=== PATIENT | female | born 1980 | race African-American/Black ===

== ENCOUNTER 2018-11-06 13:42 | Emergency (ER) | payer BC ==
[2018-11-06 14:49] LABS: Absolute Lymphocytes (CBC) 1.2 K/uL (0.7-4.9); Absolute Monocytes 0.4 K/uL (0.1-1.3); Absolute Neutrophil 10.5 K/uL (1.8-8.0); Basophils % 0.2 % (0-1.3); Eosinophils % 0.9 % (0-4.4); Hematocrit 38.8 % (36.0-45.0); Lymphocytes % 9.6 % (15.3-44.8); MPV 8.5 fL (7.6-11.3); Monocytes % 3.3 % (3.3-12.3); RBC Red Blood Cell Count 4.55 M/uL (3.86-4.86)
[2018-11-06] MEDS ORDERED: NA CHLORIDE 0.9% 1,000 ML ONE (14:52)
[2018-11-06 14:59] LABS: Protime INR 1.08
[2018-11-06 15:15] LABS: ALT/SGPT 17 U/L (12-78); AST/SGOT 16 U/L (15-37); Albumin 4.3 g/dL (3.4-5.0); Alkaline Phosphatase 83 U/L (45-117); BUN Blood Urea Nitrogen 17 mg/dL (7-18); Bicarbonate 23 mmol/L (21-32); Bilirubin Direct 0.1 mg/dL (0-0.2); Bilirubin Total 0.3 mg/dL (0.2-1.0); Glucose Level 56 mg/dL (74-106); Potassium 3.6 mmol/L (3.5-5.1); Sodium Level 143 mmol/L (136-145)
[2018-11-06 15:49] LABS: Blood Morphology Comment NOT SEEN (NOT SEEN); Platelet Estimate ADEQ
[2018-11-06 16:36] LABS: Urine Blood NEGATIVE (NEG); Urine Glucose NEGATIVE (NEG); Urine Protein 1+ (NEG); Urine pH 5.5 (5.0-7.0)
[2018-11-06 17:44] LABS: Barbiturates NEGATIVE (NEGATIVE); Benzodiazepines NEGATIVE (NEGATIVE); Cocaine NEGATIVE (NEGATIVE); METHAMPHETAM NEGATIVE (NEGATIVE); Methadone NEGATIVE (NEGATIVE); Opiates NEGATIVE (NEGATIVE); Phencyclidine NEGATIVE (NEGATIVE); THC Cannibis NEGATIVE (NEGATIVE)
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
--- NOTE | 2018-11-07 12:27 | EKG ---
Test Date: 2018-11-06 Test Time: 14:28:53 Operational Intelligence Officer: NICHOLAS MEASUREMENT RESULTS: Intervals: Rate: 87 NM: 176 QRSD: 82 QT: 352 QTc: 423 [place]: P: 76 NM: 176 QRS: 67 T: 70 INTERPRETIVE STATEMENTS: Normal sinus rhythm Nonspecific T wave abnormality Abnormal ECG No previous ECG available for comparison Electronically Signed On 11-07-18 12:24:35 CDT by Husam Michaud
== END 2018-11-07 00:18 | disposition short-term general hospital (02) ==
LOC: ER 13:42
DX: T76.21XA Adult sexual abuse, suspected, initial encounter (principal); F10.10 Alcohol abuse, uncomplicated
CPT/HCPCS: 36415; 80048; 80076; 80307; 80320; 80329; 81003; 81025; 85025; 85610; 85730; 93005; 99285; J7030

== ENCOUNTER 2020-10-05 00:01 | Emergency (ER) | payer BC ==
[2020-10-05 00:43] LABS: Absolute Lymphocytes (CBC) 1.4 K/uL (0.7-4.9); Basophils % 0.5 % (0-1.3); Hematocrit 33.5 % (36.0-45.0); Lymphocytes % 16.5 % (15.3-44.8); MPV 8.8 fL (7.6-11.3); RBC Red Blood Cell Count 4.18 M/uL (3.86-4.86)
[2020-10-05 00:45] LABS: Urine Blood TRACE (NEG); Urine Glucose NEGATIVE (NEG); Urine Protein NEGATIVE (NEG); Urine Specific Gravity >1.030 (1.005-1.030)
[2020-10-05] MEDS ORDERED: NA CHLORIDE 0.9% 1,000 ML ONE (00:50)
[2020-10-05] MEDS ORDERED: MORPHINE 2 MG/ML SYR ONE (00:50)
[2020-10-05] MEDS ORDERED: ONDANSETRON 4 MG/2 ML VIAL ONE (00:50)
[2020-10-05 00:56] LABS: ALT/SGPT 12 U/L (12-78); AST/SGOT 10 U/L (15-37); Albumin 3.9 g/dL (3.4-5.0); Alkaline Phosphatase 81 U/L (45-117); BUN Blood Urea Nitrogen 15 mg/dL (7-18); Bicarbonate 27 mmol/L (21-32); Bilirubin Direct 0.2 mg/dL (0-0.2); Bilirubin Total 0.6 mg/dL (0.2-1.0); Glucose Level 89 mg/dL (74-106); Lipase 81 U/L (73-393); Potassium 3.7 mmol/L (3.5-5.1); Protein, Total 7.5 g/dL (6.4-8.2); Sodium Level 142 mmol/L (136-145)
[2020-10-05 00:56] LABS: Urine Bacteria >50 /HPF (<20); Urine Mucus 2+ /HPF (NONE SEEN)
[2020-10-05] MEDS ORDERED: CEFTRIAXONE 1000 MG/VIAL ONE (01:50)
--- NOTE | 2020-10-05 01:57 | EDPHYS ---
Physician Documentation [facility] Name: Nirmala King Age: 40 yrs Sex: Female : 1980 Arrival Date: 10/05/2020 Time: 00:05 Bed 17 Private MD: ED Physician Rick Lindquist HPI: 10/05 00:20 This 40 yrs old Black Female presents to ER via Ambulatory with complaints of Abdominal cp Pain. 00:20 The patient presents with abdominal pain in the lower abdomen. Onset: The cp symptoms/episode began/occurred yesterday, and became worse today. Associated signs and symptoms: Pertinent negatives: nausea and vomiting, chest pain, constipation, diarrhea, dysuria, fever, headache, vaginal discharge. The symptoms are described as crampy. Severity of pain: in the emergency department the pain is unchanged despite home interventions. 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 - Social history:: Smoking status: Patient denies any tobacco usage or history of. ROS: 00:25 Constitutional: Negative for body aches, chills, fever, poor PO intake. cp 00:25 Eyes: Negative for injury, pain, redness, and discharge. cp 00:25 Cardiovascular: Negative for chest pain, palpitations. 00:25 Respiratory: Negative for cough, shortness of breath, wheezing. 00:25 Abdomen/GI: Positive for abdominal pain, of the left lower quadrant and right lower quadrant, Negative for vomiting, diarrhea, constipation. 00:25 Back: Negative for injury or acute deformity, decreased range of motion. 00:25 : Negative for urinary symptoms, vaginal bleeding, vaginal discharge. 00:25 Neuro: Negative for altered mental status, headache, weakness. 00:25 All other systems are negative. Exam: 00:30 Constitutional: The patient appears in no acute distress, alert, awake, non-toxic, well cp developed, well nourished, uncomfortable. 00:30 Head/Face: Normocephalic, atraumatic. cp 00:30 Eyes: Periorbital structures: appear normal, Conjunctiva: normal, no exudate, no injection, Sclera: no appreciated abnormality, Lids and lashes: appear normal, bilaterally. 00:30 ENT: External ear(s): are unremarkable, Nose: is normal, Mouth: Lips: moist, Oral mucosa: pink and intact, moist, Posterior pharynx: Airway: no evidence of obstruction, patent. 00:30 Chest/axilla: Inspection: normal. 00:30 Cardiovascular: Rate: normal, Rhythm: regular. 00:30 Respiratory: the patient does not display signs of respiratory distress, Respirations: normal, no use of accessory muscles, no retractions, labored breathing, is not present, Breath sounds: are clear throughout, no decreased breath sounds, no stridor, no wheezing. 00:30 Abdomen/GI: Inspection: abdomen appears normal, Bowel sounds: active, all quadrants, Palpation: soft, in all quadrants, moderate abdominal tenderness, in the right lower quadrant and left lower quadrant, rebound tenderness, is not appreciated, voluntary guarding, is elicited in the right lower quadrant and left lower quadrant. 00:30 Neuro: Orientation: to person, place \T\ time. Mentation: is normal. Vital Signs: 00:15 BP 155 / 95; Pulse 89; Resp 18; Temp 99.9(O); Pulse Ox 99% on R/A; Weight 77.11 kg; em Height 5 ft. 4 in. (162.56 cm); Pain 6/10; 02:10 BP 135 / 80; Pulse 80; Resp 18; Temp 98; Pulse Ox 100% on R/A; mg2 00:15 Body Mass Index 29.18 (77.11 kg, 162.56 cm) em MDM: 00:10 Patient medically screened. ghazala 00:30 Differential diagnosis: appendicitis, Ectopic , gastritis, non-specific abd cp pain, Ovarian Torsion, Pelvic Inflammatory Disease, Ureterolithiasis, urinary tract infection. 01:55 Data reviewed: vital signs, nurses notes, lab test result(s), radiologic studies, CT cp scan. 01:55 Counseling: I had a detailed discussion with the patient and/or guardian regarding: the cp historical points, exam findings, and any diagnostic results supporting the discharge/admit diagnosis, lab results, radiology results, to return to the emergency department if symptoms worsen or persist or if there are any questions or concerns that arise at home. Response to treatment: the patient's symptoms have markedly improved after treatment, and as a result, I will discharge patient. Special discussion: Based on the patient's Hx, exam, and Dx evaluation, there is no indication for emergent surgery or inpatient Tx. It is understood by the patient/guardian that if the Sx's persist or worsen they need to return immediately for re-evaluation. ED course: VSS. Pain improved with meds. Will treat for UTI with oral antibiotics and discharge to home for continued monitoring. 10/05 00:17 Order name: Basic Metabolic Panel; Complete Time: 01:15 cp 10/05 01:15 Interpretation: Normal except: CL 108. cp 10/05 00:17 Order name: CBC with Diff; Complete Time: 01:15 cp 10/05 01:15 Interpretation: Normal except: HGB 10.6; HCT 33.5; MCV 80.3; MCH 25.4; MCHC 31.7; RDW cp 16.5; ESHA% 76.5. 10/05 00:17 Order name: Hepatic Function; Complete Time: 01:15 cp 10/05 00:17 Order name: Lipase; Complete Time: 01:15 cp 10/05 00:17 Order name: Urine Microscopic Only; Complete Time: 01:15 cp 10/05 01:45 Interpretation: Normal except: UWBC 20-50; URBC 5-10; UBACT >50; SQEPI 5-10. cp 10/05 00:44 Order name: Urine Dipstick--Ancillary (enter results); Complete Time: 01:15 tt3 10/05 00:20 Order name: CT Abd/Pelvis - IV Contrast Only cp 10/05 00:44 Order name: Urine --Ancillary (enter results); Complete Time: 01:15 tt3 10/05 00:57 Order name: Urine Culture EDMS 10/05 00:17 Order name: IV Saline Lock; Complete Time: 00:30 cp 10/05 00:17 Order name: Labs collected and sent; Complete Time: 00:30 cp 10/05 00:17 Order name: Urine Dipstick-Ancillary (obtain specimen); Complete Time: 00:30 cp 10/05 00:17 Order name: Urine Test (obtain specimen); Complete Time: 00:30 cp 10/05 01:51 Order name: PO challenge; Complete Time: 02:03 cp Administered Medications: 00:40 Drug: NS 0.9% 1000 ml Route: IV; Rate: 1 bolus; Site: left antecubital; mg2 02:04 Follow up: Response: No adverse reaction; IV Status: Completed infusion; IV Intake: mg2 1000ml 00:40 Drug: Zofran (Ondansetron) 4 mg Route: IVP; Site: left antecubital; mg2 01:24 Follow up: Response: No adverse reaction mg2 02:04 Follow up: Response: No adverse reaction mg2 00:40 Drug: morphine 2 mg Route: IVP; Site: left antecubital; mg2 01:24 Follow up: Response: No adverse reaction; Marked relief of symptoms mg2 01:40 Drug: Rocephin 1 grams Route: IV; Rate: calculated rate; Site: left antecubital; mg2 02:03 Follow up: Response: No adverse reaction; IV Status: Completed infusion mg2 02:03 Drug: TORadol - Ketorolac 15 mg Route: IVP; Site: left antecubital; mg2 02:03 Follow up: Response: No adverse reaction mg2 Disposition: 14:39 Co-signature as Attending Physician, Rick Lindquist MD I agree with the assessment and ghazala plan of care. Disposition: 10/05/20 01:57 Discharged to Home. Impression: Urinary tract infection, site not specified, Lower abdominal pain, unspecified. - Condition is Stable. - Discharge Instructions: Abdominal Pain, Adult, Urinary Tract Infection, Adult. - Prescriptions for Augmentin 875- 125 mg Oral Tablet - take 1 tablet by ORAL route every 12 hours for 7 days; 14 tablet. Bentyl 20 mg Oral Tablet - take 1 tablet by ORAL route every 6 hours As needed; 30 tablet. Zofran 4 mg Oral Tablet - take 1 tablet by ORAL route every 12 hours As needed; 20 tablet. - Medication Reconciliation Form, Thank You Letter, Antibiotic Education, Prescription Opioid Use form. - Follow up: Private Physician; When: 2 - 3 days; Reason: Recheck today's complaints. - Problem is new. - Symptoms have improved. Signatures: Dispatcher [employer] Rick Burnett MD MD cha Munoz, Edgar RN RN em Rick Diaz PA PA cp Gardose, Michele, RN RN mg2 Corrections: (The following items were deleted from the chart) 02:11 01:57 10/05/2020 01:57 Discharged to Home. Impression: Urinary tract infection, site mg2 not specified; Lower abdominal pain, unspecified. Condition is Stable. Forms are Medication Reconciliation Form, Thank You Letter, Antibiotic Education, Prescription Opioid Use. Follow up: Private Physician; When: 2 - 3 days; Reason: Recheck today's complaints. Problem is new. Symptoms have improved. cp
--- NOTE | 2020-10-05 01:57 | ER ---
Nurse's Notes [facility] Name: Nirmala King Age: 40 yrs Sex: Female : 1980 Arrival Date: 10/05/2020 Time: 00:05 Bed 17 Private MD: Diagnosis: Urinary tract infection, site not specified;Lower abdominal pain, unspecified Presentation: 10/05 00:15 Chief complaint: Patient states: abdominal pain and pelvic pain that started noon, em denies N/V/D, fever or dysuria. Coronavirus screen: Client denies travel out of the [place] in the last 14 days. Ebola Screen: Patient negative for fever greater than or equal to 101.5 degrees Fahrenheit, and additional compatible Ebola Virus Disease symptoms Patient denies exposure to infectious person. Patient denies travel to an Ebola-affected area in the 21 days before illness onset. No symptoms or risks identified at this time. Initial Sepsis Screen: Does the patient meet any 2 criteria? No. Patient's initial sepsis screen is negative. Does the patient have a suspected source of infection? No. Patient's initial sepsis screen is negative. Risk Assessment: Do you want to hurt yourself or someone else? Patient reports no desire to harm self or others. Onset of symptoms was October 05, 2020. 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 - Social history:: Smoking status: Patient denies any tobacco usage or history of. Screenin:44 Abuse screen: Denies threats or abuse. Denies injuries from another. Nutritional mg2 screening: No deficits noted. Tuberculosis screening: No symptoms or risk factors identified. Fall Risk IV access (20 points). Assessment: 00:35 General: Appears in no apparent distress. comfortable, Behavior is calm, cooperative. mg2 00:35 Pain: Complains of pain in abdomen Pain does not radiate. Pain currently is 6 out of 10 mg2 on a pain scale. Quality of pain is described as aching, Pain began gradually. Neuro: Level of Consciousness is awake, alert, obeys commands, Oriented to person, place, time, situation. Cardiovascular: Capillary refill < 3 seconds Patient's skin is warm and dry. Respiratory: Airway is patent Respiratory effort is even, unlabored, Respiratory pattern is. GI: Bowel sounds present X 4 quads. Abd is soft Reports lower abdominal pain. : No signs and/or symptoms were reported regarding the genitourinary system. EENT: No signs and/or symptoms were reported regarding the EENT system. Derm: Skin is intact, is healthy with good turgor, Skin is pink, warm \T\ dry. normal. Musculoskeletal: Circulation, motion, and sensation intact. Capillary refill < 3 seconds. Vital Signs: 00:15 BP 155 / 95; Pulse 89; Resp 18; Temp 99.9(O); Pulse Ox 99% on R/A; Weight 77.11 kg; em Height 5 ft. 4 in. (162.56 cm); Pain 6/10; 02:10 BP 135 / 80; Pulse 80; Resp 18; Temp 98; Pulse Ox 100% on R/A; mg2 00:15 Body Mass Index 29.18 (77.11 kg, 162.56 cm) em ED Course: 00:05 Patient arrived in ED. am4 00:07 Rick Diaz PA is PHCP. cp 00:07 Rick Lindquist MD is Attending Physician. cp 00:18 Marty Choudhary, LOBITO is Primary Nurse. mg2 00:19 Triage completed. em 00:19 Arm band placed on. em 00:38 Inserted saline lock: 20 gauge in left antecubital area, using aseptic technique. Blood mg2 collected. 00:45 Patient has correct armband on for positive identification. mg2 00:45 No provider procedures requiring assistance completed. mg2 01:32 CT Abd/Pelvis - IV Contrast Only In Process Unspecified. EDMS 02:11 IV discontinued, intact, bleeding controlled, No redness/swelling at site. Pressure mg2 dressing applied. Administered Medications: 00:40 Drug: NS 0.9% 1000 ml Route: IV; Rate: 1 bolus; Site: left antecubital; mg2 02:04 Follow up: Response: No adverse reaction; IV Status: Completed infusion; IV Intake: mg2 1000ml 00:40 Drug: Zofran (Ondansetron) 4 mg Route: IVP; Site: left antecubital; mg2 01:24 Follow up: Response: No adverse reaction mg2 02:04 Follow up: Response: No adverse reaction mg2 00:40 Drug: morphine 2 mg Route: IVP; Site: left antecubital; mg2 01:24 Follow up: Response: No adverse reaction; Marked relief of symptoms mg2 01:40 Drug: Rocephin 1 grams Route: IV; Rate: calculated rate; Site: left antecubital; mg2 02:03 Follow up: Response: No adverse reaction; IV Status: Completed infusion mg2 02:03 Drug: TORadol - Ketorolac 15 mg Route: IVP; Site: left antecubital; mg2 02:03 Follow up: Response: No adverse reaction mg2 Intake: 02:04 IV: 1000ml; Total: 1000ml. mg2 Outcome: 01:57 Discharge ordered by MD. cp 02:11 Discharged to home ambulatory. mg2 02:11 Condition: stable 02:11 Discharge instructions given to patient, Instructed on discharge instructions, follow up and referral plans. medication usage, Demonstrated understanding of instructions, follow-up care, medications, Prescriptions given X 3. 02:11 Patient left the ED. mg2 Addendum: 10/13/2020 13:50 Addendum: Culture Results: Positive urine culture. No further action required. Bacteria i w sensitive to prescribed antibiotic. Signatures: Dispatcher [employer] Ernie Sapp RN RN em Williams, Irene, RN RN iw Page, Corey, PA PA cp Marty Choudhary RN RN mg2 Sarai Dent
[2020-10-05] MEDS ORDERED: KETOROLAC 30 MG/ML INJ ONE (02:14)
[2020-10-05 02:20] VITALS: BP 135/80; TEMP 98; O2SAT 100
--- NOTE | 2020-10-05 08:21 | RAD REPORT ---
EXAM DESCRIPTION: CT - Abdomen Pelvis W Contrast - 10/05/2020 7:02 am CLINICAL HISTORY: The patient is 40 years old and is Female; lower abdomen pain TECHNIQUE: Axial computed tomography images of the abdomen and pelvis with intravenous contrast. S agittal and coronal reformatted images were created and reviewed. This CT exam was performed using one or more of the following dose reduction techniques: automated exposure control, adjustment of t he mA and/or kV according to patient size, and/or use of iterative reconstruction technique. COMPARISON: No relevant prior studies available. FINDINGS: LUNG BASES: Unremarkable. No mass. No consolidation. ABDOMEN: LIVER: Unremarkable. No mass. GALLBLADDER AND BILE DUCTS: No calcified stones. No ductal dilation. PANCREAS: No ductal dilation. No mass. SPLEEN: Unremarkable. ADRENALS: Unremarkable. No mass. KIDNEYS AND URETERS: Unremarkable. The kidneys enhance symmetrically. No obstructing renal or ur eteral calculus is seen. No hydronephrosis or hydroureter. No perinephric fluid or stranding. STOMACH AND BOWEL: The stomach is minimally filled with fluid. The proximal small bowel is decom pressed. The distal small bowel is fluid-filled. The terminal ileum is filled with high density mater ial suggesting ingested contents. A moderate amount stool is present throughout colon. There is no juvenal wel obstruction. PELVIS: APPENDIX: The appendix is normal in caliber without surrounding inflammation. BLADDER: Unremarkable. No mass. REPRODUCTIVE: Unremarkable as visualized. ABDOMEN and PELVIS: INTRAPERITONEAL SPACE: Trace free fluid is present within the pelvis which is likely physiologic . No free air. BONES/JOINTS: No acute fracture. SOFT TISSUES: The soft tissues are normal. VASCULATURE: Unremarkable. No abdominal aortic aneurysm. LYMPH NODES: Unremarkable. No enlarged lymph nodes. IMPRESSION: Nonspecific fluid-filled distal small bowel loops which may be secondary to an enteritis . There is no bowel obstruction. Electronically signed by: Lexus Corona MD 10/05/2020 1:44 AM MEDIA SPECIALIST Due to temporary technical issues with the PACS/Fluency reporting system, reports are being signed by the in house radiologist without review as a courtesy to ensure prompt reporting. The interpreting r adiologist is fully responsible for the content of the report.
== END 2020-10-05 02:11 | disposition home or self-care (01) ==
LOC: ER 00:01
DX: N39.0 Urinary tract infection, site not specified (principal); Z91.048 Other nonmedicinal substance allergy status
CPT/HCPCS: 96365; 96361; 87088; 85025; 87086; 80048; 36415; 81025; 80076; 87077; 87186; 83690; 74177; 96375; 99284; Q9967; J2270; J7030; J2405; 81003; 81015

== ENCOUNTER 2020-12-27 22:37 | Emergency (ER) | payer BC ==
--- OUTSIDE RECORDS SUMMARY | 2020-12-27 22:40 | XMS REPORT | Continuity of Care Document ---
:1980 Author Organization [facility] t Address [address] [place] [address] Dr. De Leon [address] [place] [id number] Care Team Providers Name Role Phone Unavailable Unavailable Unavailable Problems This patient has no known problems. Allergies, Adverse Reactions, Alerts This patient has no known allergies or adverse reactions. Medications This patient has no known medications. Procedures This patient has no known procedures. Results This patient has no known results.
--- NOTE | 2020-12-28 01:19 | EDPHYS ---
Physician Documentation [facility] Name: Nirmala King Age: 40 yrs Sex: Female : 1980 Arrival Date: 12/27/2020 Time: 22:39 Bed 30 Private MD: Karel Oliveros ED Physician Yogi Birmingham HPI: 12/28 01:09 This 40 yrs old Black Female presents to ER via Ambulatory with complaints of Hip Pain. [facility] 01:09 The patient or guardian reports pain. that occurred at an unknown site, sustained from [facility] lifting or pulling, a heavy object, There is no obvious deformity, The patient is able to self ambulate. The patient is able to bear their full body weight. There is no radiation of the patient's discomfort. The complaints affect the right hip. Onset: The symptoms/episode began/occurred 1 month(s) ago. Modifying factors: The symptoms are alleviated by OTC meds, the symptoms are aggravated by flexion, working out. Associated signs and symptoms: Loss of consciousness: the patient experienced no loss of consciousness, Pertinent negatives: abdominal pain, altered mental status, anorexia, chest pain, diarrhea, dizziness, dysuria, fever, headache, incontinence, nausea, shortness of breath, vomiting, weakness. 01:11 Severity of symptoms: At their worst the symptoms were mild, 7 day(s) ago, in the [facility] emergency department the symptoms have improved, markedly. States that she has had intermittent pain in right buttock/hip area for about a month. notices pain when she gets up in the morning, working out for long periods of time, and sometimes while working which involves bending and lifting. Denies any other complaints.. 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 - Social history:: Smoking status: Patient denies any tobacco usage or history of. ROS: 12/28 01:11 Constitutional: Negative for fever, chills, and weight loss, Eyes: Negative for injury, [facility] pain, redness, and discharge, ENT: Negative for injury, pain, and discharge, Neck: Negative for injury, pain, and swelling, Cardiovascular: Negative for chest pain, palpitations, and edema, Respiratory: Negative for shortness of breath, cough, wheezing, and pleuritic chest pain, Abdomen/GI: Negative for abdominal pain, nausea, vomiting, diarrhea, and constipation, Back: Negative for injury and pain, : Negative for injury, bleeding, discharge, and swelling, Skin: Negative for injury, rash, and discoloration, Neuro: Negative for headache, weakness, numbness, tingling, and seizure, Psych: Negative for depression, anxiety, suicide ideation, homicidal ideation, and hallucinations, Allergy/Immunology: Negative for hives, rash, and allergies, Endocrine: Negative for neck swelling, polydipsia, polyuria, polyphagia, and marked weight changes, Hematologic/Lymphatic: Negative for swollen nodes, abnormal bleeding, and unusual bruising. Exam: 01:11 Constitutional: This is a well developed, well nourished patient who is awake, alert, mh7 and in no acute distress. Head/Face: Normocephalic, atraumatic. Eyes: Pupils equal round and reactive to light, extra-ocular motions intact. Lids and lashes normal. Conjunctiva and sclera are non-icteric and not injected. Cornea within normal limits. Periorbital areas with no swelling, redness, or edema. ENT: Nares patent. No nasal discharge, no septal abnormalities noted. Tympanic membranes are normal and external auditory canals are clear. Oropharynx with no redness, swelling, or masses, exudates, or evidence of obstruction, uvula midline. Mucous membranes moist. Neck: Trachea midline, no thyromegaly or masses palpated, and no cervical lymphadenopathy. Supple, full range of motion without nuchal rigidity, or vertebral point tenderness. No Meningismus. Chest/axilla: Normal chest wall appearance and motion. Nontender with no deformity. No lesions are appreciated. Cardiovascular: Regular rate and rhythm with a normal S1 and S2. No gallops, murmurs, or rubs. Normal PMI, no JVD. No pulse deficits. Respiratory: Lungs have equal breath sounds bilaterally, clear to auscultation and percussion. No rales, rhonchi or wheezes noted. No increased work of breathing, no retractions or nasal flaring. Abdomen/GI: Soft, non-tender, with normal bowel sounds. No distension or tympany. No guarding or rebound. No evidence of tenderness throughout. Back: No spinal tenderness. No costovertebral tenderness. Full range of motion. Skin: Warm, dry with normal turgor. Normal color with no rashes, no lesions, and no evidence of cellulitis. MS/ Extremity: Pulses equal, no cyanosis. Neurovascular intact. Full, normal range of motion. 01:11 Neuro: Awake and alert, GCS 15, oriented to person, place, time, and situation. Cranial nerves II-XII grossly intact. Motor strength 5/5 in all extremities. Sensory grossly intact. Cerebellar exam normal. Normal gait. Psych: Awake, alert, with orientation to person, place and time. Behavior, mood, and affect are within normal limits. 01:11 Musculoskeletal/extremity: Circulation is intact in all extremities. Sensation intact. Joints: All joints appear normal with full range of motion. Weight bearing: able to fully bear weight, without difficulty, Tendon exam: specific tendon testing normal through active and passive range of motion DVT Exam: no pain, no swelling, no tenderness, negative Homans' sign noted on exam, no appreciated bluish discoloration, no erythema, no increased warmth. Vital Signs: 12/27 23:15 BP 131 / 94; Pulse 69; Resp 17; Temp 98.5; Pulse Ox 100% ; Weight 75.75 kg; Height 5 ca1 ft. 4 in. (162.56 cm); Pain 4/10; 23:15 Body Mass Index 28.67 (75.75 kg, 162.56 cm) ca1 MDM: 12/28 01:11 Differential diagnosis: bursitis, arthritis, strain, Musculoskeletal Pain. Data [facility] reviewed: vital signs, nurses notes. Data interpreted: Pulse oximetry: on room air is 100 %. Interpretation: normal. Counseling: I had a detailed discussion with the patient and/or guardian regarding: the historical points, exam findings, and any diagnostic results supporting the discharge/admit diagnosis, the need for outpatient follow up, to return to the emergency department if symptoms worsen or persist or if there are any questions or concerns that arise at home. Response to treatment: the patient's symptoms have markedly improved after treatment. 01:18 Patient medically screened. [facility] Administered Medications: No medications were administered Disposition: 12/28/20 01:18 Discharged to Home. Impression: Musculoskeletal Pain. - Condition is Stable. - Discharge Instructions: Musculoskeletal Pain. - Work release form, Medication Reconciliation Form, Thank You Letter, Antibiotic Education, Prescription Opioid Use form. - Follow up: Private Physician; When: 1 - 2 days; Reason: Worsening of condition, Recheck today's complaints, Continuance of care, Re-evaluation by your physician. Follow up: Pavel Phillips MD; When: 1 week; Reason: Worsening of condition, Recheck today's complaints. - Problem is an ongoing problem. - Symptoms have improved. Signatures: Moni Harper RN RN iw Cecilia Ortiz RN RN ca1 Yogi Birmingham MD MD mh7 Corrections: (The following items were deleted from the chart) 01:54 01:18 12/28/2020 01:18 Discharged to Home. Impression: Musculoskeletal Pain. Condition iw is Stable. Forms are Medication Reconciliation Form, Thank You Letter, Antibiotic Education, Prescription Opioid Use. Follow up: Private Physician; When: 1 - 2 days; Reason: Worsening of condition, Recheck today's complaints, Continuance of care, Re-evaluation by your physician. Follow up: Pavel Phillips; When: 1 week; Reason: Worsening of condition, Recheck today's complaints. Problem is an ongoing problem. Symptoms have improved. mh7
--- NOTE | 2020-12-28 01:19 | ER ---
Nurse's Notes [facility] Name: Nirmala King Age: 40 yrs Sex: Female : 1980 Arrival Date: 12/27/2020 Time: 22:39 Bed 30 Private MD: Karel Oliveros Diagnosis: Musculoskeletal Pain Presentation: 12/27 23:11 Chief complaint: Patient states: c/o pain in right hip down right buttock and it ca1 started about 1 month ago. Coronavirus screen: Client denies travel out of the [place] in the last 14 days. Client indicates they have traveled out of the [place] in the last 14 days. At this time, unable to obtain information related to travel outside the [place] Ebola Screen: Patient negative for fever greater than or equal to 101.5 degrees Fahrenheit, and additional compatible Ebola Virus Disease symptoms Patient denies exposure to infectious person. Patient denies travel to an Ebola-affected area in the 21 days before illness onset. Initial Sepsis Screen: Does the patient meet any 2 criteria? No. Patient's initial sepsis screen is negative. Does the patient have a suspected source of infection? No. Patient's initial sepsis screen is negative. Risk Assessment: Do you want to hurt yourself or someone else? Patient reports no desire to harm self or others. Onset of symptoms is unknown. 23:11 Method Of Arrival: Ambulatory ca1 23:11 Acuity: EUNICE 4 ca1 Triage Assessment: 12/28 01:00 General: Appears in no apparent distress. Behavior is calm, cooperative. 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 - Social history:: Smoking status: Patient denies any tobacco usage or history of. Screenin/07 01:53 Abuse screen: Denies threats or abuse. Denies injuries from another. Nutritional iw screening: No deficits noted. Tuberculosis screening: No symptoms or risk factors identified. Fall Risk None identified. Assessment: 01:00 General: Appears in no apparent distress. Behavior is calm, cooperative. Pain: iw Complains of pain in back. Neuro: Level of Consciousness is awake, alert, obeys commands, Oriented to person, place, time, situation, Moves all extremities. Full function. Cardiovascular: Patient's skin is warm and dry. Respiratory: Respiratory effort is even, unlabored, Respiratory pattern is regular, symmetrical. Derm: Skin is intact, is healthy with good turgor. Musculoskeletal: Range of motion: intact in all extremities. Vital Signs: 12/27 23:15 BP 131 / 94; Pulse 69; Resp 17; Temp 98.5; Pulse Ox 100% ; Weight 75.75 kg; Height 5 ca1 ft. 4 in. (162.56 cm); Pain 4/10; 23:15 Body Mass Index 28.67 (75.75 kg, 162.56 cm) ca1 ED Course: 22:39 Patient arrived in ED. am4 22:39 Karel Oliveros MD is Private Physician. am4 23:13 Triage completed. ca1 23:16 Arm band placed on left wrist. ca1 12/28 00:36 Moni Harper, LOBITO is Primary Nurse. iw 00:44 Yogi Birmingham MD is Attending Physician. mh7 01:00 Patient has correct armband on for positive identification. iw 01:17 Pavel Phillips MD is Referral Physician. 7 01:53 No provider procedures requiring assistance completed. Patient did not have IV access iw during this emergency room visit. Administered Medications: No medications were administered Outcome: 01:18 Discharge ordered by . mh7 01:53 Discharged to home ambulatory, with family. iw 01:53 Condition: good 01:53 Discharge instructions given to patient, Instructed on discharge instructions, follow up and referral plans. Demonstrated understanding of instructions, follow-up care. 01:54 Patient left the ED. iw Signatures: Moni aHrper RN RN iw Cecilia Ortiz RN RN ca1 Yogi Birmingham MD MD [facility] Sarai Dent am4
[2020-12-28 01:59] VITALS: BP 131/94; TEMP 98.5; O2SAT 100
== END 2020-12-28 01:54 | disposition home or self-care (01) ==
LOC: ER 22:37
DX: M79.18 Myalgia, other site (principal); Z91.02 Food additives allergy status
CPT/HCPCS: 99281

== ENCOUNTER 2024-01-28 09:30 | Day surgery (SDC) | payer BC ==
[2024-01-28] MEDS ORDERED: LIDOCAINE 1% MPF 5 ML VIAL ONE ×2 (09:56→11:18)
[2024-01-28] MEDS ORDERED: dexAMETHasone 10 MG/ML VIAL ONE (09:56)
[2024-01-28] MEDS ORDERED: ONDANSETRON 4 MG/2 ML VIAL ONE (09:56)
[2024-01-28] MEDS ORDERED: Ringers Lactate 1,000 ML IV ONE (09:57)
[2024-01-28] MEDS ORDERED: MIDAZOLAM HCL 2 MG/2 ML INJ ONE ×2 (09:57→11:30)
[2024-01-28] MEDS ORDERED: propofoL 200 MG/20 ML VIAL IV ONE (09:57)
[2024-01-28] MEDS ORDERED: ROCURONIUM 50 MG/5 ML VIAL IV ONE (09:57)
[2024-01-28] MEDS ORDERED: KETAMINE HCL IN 0.9 % NACL 50 MG/5 ML SYRINGE IV ONE (09:57)
[2024-01-28] MEDS ORDERED: FENTANYL CITR 100 MCG/2 ML ONE (09:57)
[2024-01-28] MEDS: SCOPOLAMINE HYDROBROMIDE PATCH TD ONE (10:03)
[2024-01-28] MEDS: CEFAZOLIN SODIUM 2 GM/VIAL ONE (11:38)
[2024-01-28] MEDS: BUPIVACAINE 0.25% PF 30 ML VIAL ONE (11:38)
[2024-01-28] MEDS: METHYLENE BLUE 1% 10 ML VIAL ONE (12:39)
[2024-01-28] MEDS ORDERED: KETOROLAC 30 MG/ML INJ ONE (12:54)
[2024-01-28] MEDS ORDERED: MEPERIDINE HCL 25 MG/ML SYR IM PRN (13:17)
[2024-01-28] MEDS ORDERED: IBUPROFEN 200 MG TAB PO PRN (13:17)
[2024-01-28] MEDS ORDERED: PROMETHAZINE INJ 25 MG/ML AMP IV PRN (13:17)
[2024-01-28] MEDS ORDERED: Mastisol Adhesive Liq ONE (13:21)
--- NOTE | 2024-01-28 13:23 | P.BOP ---
Preoperative diagnosis: AUB-O, Chronic endometritis, Pelvic pain Postoperative diagnosis: same , bilateral dense tubo-ovarian adhesions, right paratubal cyst,myoma Primary procedure: diag hysteroscopy, diag lapsc, b/l tubo-ovariolysis,R paratubal cystectomy Secondary procedure: lapsc myomectomy x1 Crystallography Teacher: Rina Chopra Estimated blood loss: 25 Specimen: fibroid, rt paratubalcyst, adhesions-pelvic, rt tubo-ovarian Findings: 3 tiny fibroids,patent tubes,Normal ut cavity,dense tubo-ovarian adhesions Anesthesia: General Complications: None Transferred to: Recovery Room Condition: Good
[2024-01-28] MEDS ORDERED: MEPERIDINE HCL 25 MG/ML SYR ONE (13:51)
[2024-01-28] MEDS: HYDROMORPHONE HCL 1 MG/ML INJ ONE ×2 (14:21→14:35)
[2024-01-28] MEDS: Ringers Lactate 1,000 ML IV ONE (14:23)
[2024-01-28] MEDS ORDERED: HYDROCODONE/APAP 5/325 MG TAB ONE (15:18)
[2024-01-28] MEDS: HYDROCODONE/APAP 5/325 MG TAB PO PRN (15:30)
[2024-01-28 16:24] VITALS: BP 128/84; TEMP 97; O2SAT 98
--- NOTE | 2024-01-29 04:28 | OP ---
Date of Procedure: 01/28/2024 Surgeon: Destini Juares MD Industrial Commercial Groundskeeper: Rina Singh. Preoperative Diagnoses: 1.Abnormal uterine bleeding in (AUB-O). 2.Pelvic pain, chronic endometritis, secondary infertility. Postoperative Diagnoses: Bilateral tubo-ovarian adhesions, right paratubal cyst, small leiomyomata t hat are subserosal and nodular ischemic region of the tubes and Usjj-Fieb-Ktorsl syndrome (perihepati c adhesions). Procedures Performed: 1.Diagnostic hysteroscopy. 2.Diagnostic laparoscopy, bilateral tubal ovariolysis. 3.Chromotubation. 4.Paratubal cystectomy. 5.Laparoscopic myomectomy, 1 small fibroid was removed and 2 other small fibroids were ablated. Anesthesia: General endotracheal. Estimated Blood Loss: Twenty-five. Specimens: Fibroid, right paratubal cyst, pelvic adhesions, and right tubo-ovarian adhesions. Findings: Three tiny fibroids were seen in the fundal area towards the left nodular ischemic regions of both tubes was noted. However, on chromotubation, both tubes were patent. Normal uterine cavity was noted on hysteroscopy. Dense tubo-ovarian adhesions were present bilaterally to the posterior b road ligament as well as to the lateral wall. The right side was much more significant than the left side adhesions, adhered way to the uterosacral ligaments. These adhesions were all removed and the tubal and ovarian adhesions from one to the other were all removed as well as well as to the sidewall . Adhesions on the right side were biopsied. Pelvic adhesions were also removed and they were biops ied. The right paratubal cyst was excised, which was about 1.5 cm. Complications: None. Drains: No drains. Condition: The patient's condition good. Indications: The patient is a 43-year-old presented with lower abdominal and pelvic pain that has be en intermittent, but mostly notable during ovulation. 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 She also performed a hysterosalpingogram doing the evaluation of her infertility. Po st hysterosalpingogram, the patient had a lower abdominal pain and this was investigated by performin g an ultrasound and an MRI of the pelvis. And the pelvic MRI had suspected possible endometriosis. The patient also has been treated with antibiotics before she came to me and then later as well, but she feels her pain failed to improve despite the antibiotic treatment. She had recent onset of const ipation, unsure if this was related to postprocedure pelvic pain. We discussed about all the differe nt options she had, especially given that she wants to pursue future fertility later. Current proble ms and pelvic pain was her leading symptom and abnormal uterine bleeding likely from ovulated dysfunc tion was also to be evaluated. The patient is 43 years old, ruling out endometrial pathology was imp ortant. She was consented for diagnostic hysteroscopy, possible D and C if needed. She also was consented for diagnostic laparoscopy, evaluation of her pelvis for endometriosis or tubo -ovarian adhesions if these were found. We discussed about chromotubation to see the patency of the tube and the right side of the adnexa had a suspicious endometrioma or some lesion consistent with th at, and possible right salpingectomy was consented if there was tubal occlusion. Bilateral salpingo ovariolysis was also discussed and any cyst that was present would be removed. All these procedure a s indicated. She was consented and brought to the OR. Procedure In Detail: After informed consent was verified, she was taken back to the OR. Her mother was present by her side and question and answers were done to their satisfaction. She was given 2 g of Ancef preop, placed in supine fashion. General anesthesia given. She was placed in a dorsal lith otomy position using the Charles stirrups. The arms were tucked by the side. Abdomen prepped with Chl oraPrep. Vulva, vagina, and perineum with Betadine, and draped in a sterile fashion. Speculum place d to expose the cervix. Anterior lip grasped with a single-tooth tenaculum and the cervical canal en tered directly with a diagnostic hysteroscope and entered into the uterine cavity. The cavity appear ed to be unremarkable and endometrium appeared to be completely normal without any inflammatory parnell es or polypoid change. Both tubal ostia were visualized. No intracavitary lesions were noted. The scope was pulled out. There was no need to perform an endometrial sample at this time, especially gi prisca that I plan to perform a chromotubation, the curettage could potentially occlude with ostia. [place] rine manipulator was introduced in place and all instruments were removed. Felipe was placed to drain the bladder and attached to a drainage bag left to gravity for drainage. This area was then draped. An infraumbilical curvilinear incision was made after injecting with 0.25% Marcaine at the skin incis ion sites. Fascia was incised tagged with 0 Vicryl sutures. Peritoneum entered bluntly. Anterior r etractors placed after adequate insufflation with the Pat. After the Pat was introduced, the c amera was introduced and site of entry was checked and was unremarkable. Upper abdominal surfaces we re well visualized and the perihepatic adhesions were seen on the right dome of the liver to the diap hragm and abdominal wall. Omentum completely unremarkable. No other endometriotic lesions were seen in the upper abdominal peritoneal surfaces. Appendix was inspected and unremarkable. The patient w as placed in Trendelenburg and a 5 mm suprapubic and left lower quadrant ports were placed under dire ct vision. The pelvis was then completely inspected and the findings as dictated above. Then, the t ubo-ovarian adhesions on the left much worse on the right. The small myomata on the serosal surface and adhesions of the uterus to the utero-ovarian ligament on the right side and then pelvic adhesions from the uterosacral ligaments to the periovarian adhesions, right more than the left. Chromotubation: Methylene blue 1 ampule was mixed with 100 mL of normal saline and injected through the uterine manipulator cannula using a 60 cc syringe. There was easy filling of the tubes on both s ides and flushing. Slight nodularity was noted on the left tube. Both tubes in the distal portions appeared to be slightly clubbed, but were patent and there was a quick fill and spill of the tubes. 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 Bilateral tubal ovariolysis: The left tube and ovary were released from the adhesions first from eac h other by using sharp dissection with scissors as well as LigaSure as needed. Mostly avoiding any e lectric current. Then ovarian adhesions were taken down from the posterior broad ligament sidewall s harply. Then, adhesions of the left uterosacral were also removed. Then on the opposite side, atten tion was directed to the right side taking down the adhesions from the uterosacral ligament, releasin g the ovary and the tube. Then, ancelmo-tubal adhesions were taken down from the ovary and then ovarian adhesions taken down from the posterior broad ligament sidewall. These adhesions were biopsied and sent out. The pelvic adhesions were also given out as a specimen. Right paratubal cyst removal: A cyst was present at the distal end of the right tube adhering into t he ovary. An incision was made in the mesosalpinx superficially and the cyst was excised completely and removed through the umbilical trocar. There was good vascular supply through the tube and ovary from the level of the IP. There was no coagulation effect after the cystectomy. Thorough irrigation and suction was performed in the entire pelvic cavity. Interceed was cut into 2 pieces and it was wrapped around both tube and ovary on either side and the uterus was laid on top. Myomectomy: The fibroid on the left fundus was excised from its base and removed through the umbilic al trocar. Then, the other 2 fibroids that were present distal to it on anterior wall were also caut erized with the bipolar and destroyed. There was no need for biopsy here. After thorough irrigation , suction was performed again. All the trocars were removed after gas was desufflated. Fascia at th e umbilicus was closed with the help of 0 Vicryl suture, tagged, tied to each other and the closure w ith interrupted 5-0 Monocryl at all skin sites. Manipulator and Felipe were removed. Instrument, nee dle, and sponge counts were correct at the end of the case. The patient tolerated the procedure well . She was recovered from anesthesia and taken to PACU in stable condition. EBL was 25. Her mom was de-briefed about her operative findings. She will have 1 week postop and then she will f ollow up in 6 weeks and we will do all the labs as planned for ovarian reserve evaluation and refer h er to [facility]. She has been given the referral, but has not made the appointment. We will remind her during t he postop. MEÑO/SUZIL Voice ID: [id number] Report ID: [id number]
== END 2024-01-28 16:20 | disposition home or self-care (01) ==
LOC: OR 09:30
PROVIDERS: ATTEND Obstetrics & Gynecology
PROC: 0UN24ZZ Release Bilateral Ovaries, Percutaneous Endoscopic Approach (ICD-10-PCS; 2024-01-28)
PROC: 0UB54ZX Excision of Right Fallopian Tube, Percutaneous Endoscopic Approach, Diagnostic (ICD-10-PCS; 2024-01-28)
PROC: 0UB94ZZ Excision of Uterus, Percutaneous Endoscopic Approach (ICD-10-PCS; 2024-01-28)
PROC: 0U594ZZ Destruction of Uterus, Percutaneous Endoscopic Approach (ICD-10-PCS; 2024-01-28)
PROC: 0UJD8ZZ Inspection of Uterus and Cervix, Via Natural or Artificial Opening Endoscopic (ICD-10-PCS; principal; 2024-01-28 10:30)
DX: D25.2 Subserosal leiomyoma of uterus (principal); N83.8 Other noninflammatory disorders of ovary, fallopian tube and broad ligament; N73.6 Female pelvic peritoneal adhesions (postinfective); N93.9 Abnormal uterine and vaginal bleeding, unspecified; N80.109 Endometriosis of ovary, unspecified side, unspecified depth; R10.2 Pelvic and perineal pain; N71.1 Chronic inflammatory disease of uterus; K59.00 Constipation, unspecified; K66.0 Peritoneal adhesions (postprocedural) (postinfection)
CPT/HCPCS: 58555; 58660; 58662; 58545; 81025; 88305; J2704; J2001 ×2; J2250 ×2; J3010; J1100; J2175; J1170 ×2; J2405; J7120 ×2